=== PATIENT | female | born 1945 | race Caucasian/White ===

== ENCOUNTER 2018-01-31 20:11 | Inpatient (IN) ==
[2018-01-31] MEDS ORDERED: ASPIRIN 325 MG TABLET PO STA (21:28)
[2018-01-31 21:56] LABS: Basophils # 0.1 10*3/uL (0.0-0.2); Eosinophils # 0.1 10*3/uL (0.0-0.87); Eosinophils % 1.3 % (0.00-10.9); Hematocrit 45.2 VOL% (35.7-47.0); Hemoglobin 15.4 GM/DL (12.0-16.0); Immature Granulocytes % 0.4 %; Immature Granulocytes Absolute 0.03 #; Lymphocytes # 1.4 10*3/uL (1.4-4.0); Lymphocytes % 20.1 % (21.3-54.2); Mean Corpuscular HGB Conc 34.1 GM/DL (32-36); Mean Corpuscular Hemoglobin 32 PG (27-34); Mean Platelet Volume 10.2 FL (9.6-12.0); Monocytes # 0.7 10*3/uL (0.11-0.8); Monocytes % 9.4 % (1.7-12.7); Neutrophils # 4.9 10*3/uL (1.4-7.4); Neutrophils % 67.8 % (38.7-73.9); Platelet Count 161 T/CUMM (130-400); Red Blood Count 4.76 MC/CUMM (3.8-5.5); Red Cell Distribution Width 13.4 % (9.3-17.3); White Blood Count 7.2 T/CUMM (4-12)
[2018-01-31 22:09] LABS: PT Patient Result 10.3 SECS
[2018-01-31 22:17] LABS: Alanine Aminotransferase 24 U/L (13-56); Albumin 3.5 G/DL (3.4-5.0); Alkaline Phosphatase 78 U/L (45-117); Aspartate Amino Transferase 17 U/L (0-37); Bilirubin,Total < 0.39 MG/DL (0.2-1.0); Blood Urea Nitrogen 26 MG/DL (7-18); Calcium 8.9 MG/DL (8.5-10.1); Glucose 144 MG/DL (74-106); Osmolality,Calculated 290.1 MOS/KG (273-304); Potassium 3.9 MMOL/L (3.5-5.1); Sodium 142 MMOL/L (136-145); Total Protein 7.6 G/DL (6.4-8.3)
[2018-01-31] MEDS ORDERED: hydrALAZINE 20 MG/1 ML VIAL IV STA (22:40)
[2018-01-31] MEDS ORDERED: LABETALOL 20 MG/4 ML SYRINGE IV PRN (23:16)
[2018-01-31] MEDS ORDERED: ACETAMINOPHEN 325 MG TABLET PO PRN (23:27)
[2018-01-31] MEDS ORDERED: ONDANSETRON 4 MG/2 ML VIAL IV PRN (23:27)
[2018-02-01] MEDS ORDERED: ALBUTEROL/IPRATROPIUM 3 ML NEB RESP TX PRN (00:07)
[2018-02-01] MEDS ORDERED: ALPRAZolam 0.5 MG TABLET ONE (00:42)
[2018-02-01] MEDS: ALPRAZolam 0.5 MG TABLET PO SCH ×2 (01:15→18:05)
[2018-02-01 05:09] LABS: Basophils % 0.7 % (0.0-0.8); Eosinophils # 0.1 10*3/uL (0.0-0.87); Eosinophils % 1.8 % (0.00-10.9); Hematocrit 41.7 VOL% (35.7-47.0); Immature Granulocytes % 0.4 %; Immature Granulocytes Absolute 0.02 #; Lymphocytes # 1.3 10*3/uL (1.4-4.0); Lymphocytes % 24.1 % (21.3-54.2); Mean Corpuscular HGB Conc 33.6 GM/DL (32-36); Mean Corpuscular Hemoglobin 32 PG (27-34); Mean Corpuscular Volume 95.2 FL (87-102); Mean Platelet Volume 10.1 FL (9.6-12.0); Monocytes # 0.6 10*3/uL (0.11-0.8); Monocytes % 11.2 % (1.7-12.7); Neutrophils # 3.4 10*3/uL (1.4-7.4); Neutrophils % 61.8 % (38.7-73.9); Platelet Count 133 T/CUMM (130-400); Red Blood Count 4.38 MC/CUMM (3.8-5.5); Red Cell Distribution Width 13.5 % (9.3-17.3); White Blood Count 5.5 T/CUMM (4-12)
[2018-02-01 05:24] LABS: Calcium 8.3 MG/DL (8.5-10.1); Osmolality,Calculated 286.1 MOS/KG (273-304); Potassium 3.8 MMOL/L (3.5-5.1)
[2018-02-01 05:32] LABS: Risk Ratio 4.18
[2018-02-01] MEDS ORDERED: ENOXAPARIN 40 MG/0.4 ML SYRINGE SUBCUT SCH (09:00)
[2018-02-01] MEDS ORDERED: ASPIRIN EC 81 MG TABLET PO SCH (09:00)
[2018-02-01] MEDS: CAPTOPRIL 25 MG TABLET PO SCH ×3 (09:45→20:38)
[2018-02-01] MEDS: NICOTINE 21 MG/24 HR PATCH TRANSDERM SCH (09:45)
[2018-02-01] MEDS: cloNIDine 0.1 MG TABLET PO PRN (18:05)
[2018-02-01] MEDS: ROSUVASTATIN 20 MG TABLET PO SCH (20:46)
[2018-02-02] MEDS: NICOTINE 21 MG/24 HR PATCH TRANSDERM SCH (09:18)
[2018-02-02] MEDS: CAPTOPRIL 25 MG TABLET PO SCH ×3 (09:18→20:17)
[2018-02-02] MEDS: cloNIDine 0.1 MG TABLET PO PRN (09:19)
[2018-02-02] MEDS: amLODIPine 5 MG TABLET PO SCH (14:35)
[2018-02-02] MEDS: ROSUVASTATIN 20 MG TABLET PO SCH (20:17)
[2018-02-02] MEDS: ALPRAZolam 0.5 MG TABLET PO SCH (20:18)
[2018-02-03] MEDS ORDERED: DIAZEPAM 5 MG TABLET PO ONE (06:00)
[2018-02-03] MEDS ORDERED: PANTOPRAZOLE 40 MG TABLET PO ONE (06:00)
[2018-02-03 07:05] LABS: Basophils % 0.8 % (0.0-0.8); Eosinophils # 0.1 10*3/uL (0.0-0.87); Eosinophils % 1.6 % (0.00-10.9); Hematocrit 43.2 VOL% (35.7-47.0); Hemoglobin 14.9 GM/DL (12.0-16.0); Immature Granulocytes % 0.4 %; Immature Granulocytes Absolute 0.02 #; Lymphocytes # 1.4 10*3/uL (1.4-4.0); Lymphocytes % 26.7 % (21.3-54.2); Mean Corpuscular HGB Conc 34.5 GM/DL (32-36); Mean Corpuscular Hemoglobin 32 PG (27-34); Mean Corpuscular Volume 92.3 FL (87-102); Monocytes # 0.7 10*3/uL (0.11-0.8); Monocytes % 14.2 % (1.7-12.7); Neutrophils # 2.9 10*3/uL (1.4-7.4); Neutrophils % 56.3 % (38.7-73.9); Platelet Count 147 T/CUMM (130-400); Red Blood Count 4.68 MC/CUMM (3.8-5.5); Red Cell Distribution Width 13.4 % (9.3-17.3); White Blood Count 5.1 T/CUMM (4-12)
[2018-02-03 07:34] LABS: Calcium 8.8 MG/DL (8.5-10.1); Osmolality,Calculated 280.5 MOS/KG (273-304); Potassium 3.8 MMOL/L (3.5-5.1)
[2018-02-03] MEDS ORDERED: HEPARIN 5,000 UNIT/1 ML VIAL ONE (07:54)
[2018-02-03] MEDS: amLODIPine 5 MG TABLET PO SCH (08:13)
[2018-02-03] MEDS: NICOTINE 21 MG/24 HR PATCH TRANSDERM SCH (08:13)
[2018-02-03] MEDS: CAPTOPRIL 25 MG TABLET PO SCH ×3 (08:13→20:01)
[2018-02-03] MEDS ORDERED: ALBUTEROL/IPRATROPIUM 3 ML NEB RESP TX STA (08:45)
[2018-02-03] MEDS ORDERED: VANCOMYCIN INJ 1,000 MG in SODIUM CHLORIDE 0.9% 250 ML IV ONE (09:38)
[2018-02-03] MEDS ORDERED: PROMETHAZINE 25 MG/1 ML VIAL IM PRN (10:46)
[2018-02-03] MEDS ORDERED: GLUCAGON 1 MG VIAL IM PRN (10:46)
[2018-02-03] MEDS ORDERED: oxyCODONE/ACETAMINOPHEN 5-325 MG TABLET PO PRN (10:46)
[2018-02-03] MEDS ORDERED: NALOXONE 0.4 MG/ML VIAL IV PRN (10:46)
[2018-02-03] MEDS ORDERED: HYDROmorphone 2 MG/1 ML VIAL IV PRN ×2 (10:46)
[2018-02-03] MEDS ORDERED: DEXTROSE 50% 25 GM/50 ML VIAL IV PRN (10:46)
[2018-02-03] MEDS ORDERED: NITROPRUSSIDE 50 MG/2 ML VIAL ONE (10:59)
[2018-02-03] MEDS ORDERED: niCARdipine INJ 25 MG in SODIUM CHLORIDE 0.9% 240 ML IV PRN (11:07)
[2018-02-03] MEDS ORDERED: ONDANSETRON 4 MG/2 ML VIAL ONE ×2 (11:22→11:27)
[2018-02-03] MEDS ORDERED: LIDOCAINE 1% 5 ML VIAL ONE (11:26)
[2018-02-03] MEDS ORDERED: PROPOFOL 200 MG/20 ML VIAL IV ONE (11:26)
[2018-02-03] MEDS ORDERED: ETOMIDATE 40 MG/20 ML VIAL IV ONE (11:27)
[2018-02-03] MEDS ORDERED: fentaNYL 100 MCG/2 ML VIAL ONE (11:27)
[2018-02-03] MEDS ORDERED: HEPARIN 10,000 UNIT/10 ML VIAL ONE (11:27)
[2018-02-03] MEDS ORDERED: ROCURONIUM 100 MG/10 ML VIAL IV ONE (11:27)
[2018-02-03] MEDS ORDERED: METOPROLOL TARTRATE 5 MG/5 ML VIAL IV ONE (11:28)
[2018-02-03] MEDS ORDERED: DESFLURANE 1 UNIT/15 MINUTE INH ONE (11:28)
[2018-02-03] MEDS ORDERED: GLYCOPYRROLATE 0.4 MG/2 ML VIAL ONE (11:28)
[2018-02-03] MEDS ORDERED: PHENYLEPHRINE 10 MG/1 ML VIAL IV ONE (11:28)
[2018-02-03] MEDS ORDERED: NEOSTIGMINE 10 MG/10 ML VIAL ONE (11:29)
[2018-02-03] MEDS ORDERED: LACTATED RINGERS 1,000 ML IV ONE (11:29)
[2018-02-03] MEDS ORDERED: NITROGLYCERIN DRIP 50 MG/250 ML BOTTLE IV ONE (11:29)
[2018-02-03] MEDS ORDERED: SODIUM CHLORIDE 0.9% 250 ML IV ONE (11:29)
[2018-02-03] MEDS ORDERED: PROTAMINE SULFATE 50 MG/5 ML VIAL IV ONE (11:29)
[2018-02-03] MEDS: ONDANSETRON 4 MG/2 ML VIAL IV PRN ×2 (11:30→20:00)
[2018-02-03] MEDS: PHENYLEPHRINE DRIP 40 MG/250 ML PREMIX IV SCH (12:28)
[2018-02-03] MEDS: NITROPRUSSIDE 100 MG in DEXTROSE 5% 250 ML IV SCH ×2 (12:28→13:15)
[2018-02-03] MEDS: LACTATED RINGERS 1,000 ML IV SCH ×2 (12:30→22:06)
[2018-02-03] MEDS: INSULIN REGULAR 100 UNIT/ML SUBCUT SCH ×3 (12:31→23:55)
[2018-02-03] MEDS: CLOPIDOGREL 75 MG TABLET PO SCH (14:01)
[2018-02-03] MEDS: oxyCODONE/ACETAMINOPHEN 5-325 MG TABLET PO PRN (14:01)
[2018-02-03] MEDS: ASPIRIN EC 81 MG TABLET PO SCH (14:04)
[2018-02-03] MEDS: ALPRAZolam 0.5 MG TABLET PO SCH (19:51)
[2018-02-03] MEDS: ROSUVASTATIN 20 MG TABLET PO SCH (20:01)
[2018-02-04] MEDS: NITROPRUSSIDE 100 MG in DEXTROSE 5% 250 ML IV SCH ×2 (01:15→09:06)
[2018-02-04 05:14] LABS: Basophils % 0.4 % (0.0-0.8); Hematocrit 37.2 VOL% (35.7-47.0); Hemoglobin 12.8 GM/DL (12.0-16.0); Immature Granulocytes % 0.5 %; Immature Granulocytes Absolute 0.05 #; Lymphocytes # 0.8 10*3/uL (1.4-4.0); Lymphocytes % 8.2 % (21.3-54.2); Mean Corpuscular HGB Conc 34.4 GM/DL (32-36); Mean Corpuscular Hemoglobin 32 PG (27-34); Mean Corpuscular Volume 92.5 FL (87-102); Monocytes # 0.8 10*3/uL (0.11-0.8); Monocytes % 8.2 % (1.7-12.7); Neutrophils # 8.3 10*3/uL (1.4-7.4); Neutrophils % 82.7 % (38.7-73.9); Platelet Count 123 T/CUMM (130-400); Red Blood Count 4.02 MC/CUMM (3.8-5.5); Red Cell Distribution Width 13.6 % (9.3-17.3)
[2018-02-04] MEDS: cloNIDine 0.1 MG TABLET PO PRN ×2 (05:21→14:21)
[2018-02-04 05:31] LABS: Calcium 7.8 MG/DL (8.5-10.1); Potassium 4.1 MMOL/L (3.5-5.1)
[2018-02-04] MEDS: INSULIN REGULAR 100 UNIT/ML SUBCUT SCH ×4 (05:39→23:34)
[2018-02-04] MEDS: NICOTINE 21 MG/24 HR PATCH TRANSDERM SCH (08:06)
[2018-02-04] MEDS: ONDANSETRON 4 MG/2 ML VIAL IV PRN (08:06)
[2018-02-04] MEDS: amLODIPine 5 MG TABLET PO SCH ×2 (08:07→12:30)
[2018-02-04] MEDS: ASPIRIN EC 81 MG TABLET PO SCH (08:07)
[2018-02-04] MEDS: CLOPIDOGREL 75 MG TABLET PO SCH (08:07)
[2018-02-04] MEDS: CAPTOPRIL 25 MG TABLET PO SCH ×3 (08:07→20:21)
[2018-02-04] MEDS ORDERED: BUPIVACAINE MPF 0.25% /EPI 30 ML VIAL ONE (10:03)
[2018-02-04] MEDS ORDERED: LIDOCAINE 1% 20 ML VIAL ONE (10:03)
[2018-02-04] MEDS ORDERED: HEPARIN 5,000 UNIT/1 ML VIAL ONE (10:04)
[2018-02-04] MEDS: PHENYLEPHRINE DRIP 40 MG/250 ML PREMIX IV SCH (10:22)
[2018-02-04] MEDS: LACTATED RINGERS 1,000 ML IV SCH (12:35)
[2018-02-04] MEDS: ALBUTEROL/IPRATROPIUM 3 ML NEB RESP TX SCH ×2 (14:35→19:50)
[2018-02-04] MEDS: hydrALAZINE 20 MG/1 ML VIAL IV PRN (17:13)
[2018-02-04] MEDS: ALPRAZolam 0.5 MG TABLET PO SCH (18:57)
[2018-02-04] MEDS: ROSUVASTATIN 20 MG TABLET PO SCH (20:21)
[2018-02-05] MEDS: hydrALAZINE 20 MG/1 ML VIAL IV PRN (01:12)
[2018-02-05] MEDS: oxyCODONE/ACETAMINOPHEN 5-325 MG TABLET PO PRN (03:47)
[2018-02-05] MEDS: ONDANSETRON 4 MG/2 ML VIAL IV PRN (03:48)
[2018-02-05] MEDS: INSULIN REGULAR 100 UNIT/ML SUBCUT SCH ×4 (06:07→23:36)
[2018-02-05 06:11] LABS: Basophils % 0.3 % (0.0-0.8); Eosinophils % 0.2 % (0.00-10.9); Hematocrit 38.9 VOL% (35.7-47.0); Hemoglobin 13.2 GM/DL (12.0-16.0); Immature Granulocytes % 0.9 %; Immature Granulocytes Absolute 0.09 #; Lymphocytes # 0.8 10*3/uL (1.4-4.0); Lymphocytes % 7.8 % (21.3-54.2); Mean Corpuscular HGB Conc 33.9 GM/DL (32-36); Mean Corpuscular Hemoglobin 32 PG (27-34); Mean Platelet Volume 10.1 FL (9.6-12.0); Monocytes % 10.1 % (1.7-12.7); Neutrophils # 7.7 10*3/uL (1.4-7.4); Neutrophils % 80.7 % (38.7-73.9); Platelet Count 114 T/CUMM (130-400); Red Blood Count 4.14 MC/CUMM (3.8-5.5); Red Cell Distribution Width 13.7 % (9.3-17.3); White Blood Count 9.6 T/CUMM (4-12)
[2018-02-05 06:38] LABS: Calcium 8.5 MG/DL (8.5-10.1); Osmolality,Calculated 279.5 MOS/KG (273-304)
[2018-02-05] MEDS: ALBUTEROL/IPRATROPIUM 3 ML NEB RESP TX SCH ×4 (07:32→19:55)
[2018-02-05] MEDS: amLODIPine 5 MG TABLET PO SCH (08:00)
[2018-02-05] MEDS: CAPTOPRIL 25 MG TABLET PO SCH ×3 (08:00→21:00)
[2018-02-05] MEDS: NICOTINE 21 MG/24 HR PATCH TRANSDERM SCH (08:00)
[2018-02-05] MEDS: ASPIRIN EC 81 MG TABLET PO SCH (08:01)
[2018-02-05] MEDS: CLOPIDOGREL 75 MG TABLET PO SCH (08:01)
[2018-02-05] MEDS: NITROPRUSSIDE 100 MG in DEXTROSE 5% 250 ML IV SCH (13:02)
[2018-02-05] MEDS: PHENYLEPHRINE DRIP 40 MG/250 ML PREMIX IV SCH (13:02)
[2018-02-05] MEDS ORDERED: PHENOL 1.4% THROAT SPRAY 177 ML BOTTLE PO PRN (14:38)
[2018-02-05] MEDS: ALPRAZolam 0.5 MG TABLET PO SCH (18:45)
[2018-02-05] MEDS: ROSUVASTATIN 20 MG TABLET PO SCH (21:00)
[2018-02-06 03:58] LABS: Basophils % 0.4 % (0.0-0.8); Eosinophils # 0.1 10*3/uL (0.0-0.87); Eosinophils % 1.7 % (0.00-10.9); Hematocrit 36.9 VOL% (35.7-47.0); Hemoglobin 11.9 GM/DL (12.0-16.0); Immature Granulocytes % 0.7 %; Immature Granulocytes Absolute 0.05 #; Lymphocytes # 1.7 10*3/uL (1.4-4.0); Lymphocytes % 23.3 % (21.3-54.2); Mean Corpuscular HGB Conc 32.2 GM/DL (32-36); Mean Corpuscular Hemoglobin 31 PG (27-34); Mean Corpuscular Volume 96.1 FL (87-102); Mean Platelet Volume 10.1 FL (9.6-12.0); Monocytes # 0.9 10*3/uL (0.11-0.8); Monocytes % 12.3 % (1.7-12.7); Neutrophils # 4.4 10*3/uL (1.4-7.4); Neutrophils % 61.6 % (38.7-73.9); Platelet Count 119 T/CUMM (130-400); Red Blood Count 3.84 MC/CUMM (3.8-5.5); Red Cell Distribution Width 13.9 % (9.3-17.3); White Blood Count 7.2 T/CUMM (4-12)
[2018-02-06 04:21] LABS: Calcium 8.2 MG/DL (8.5-10.1); Osmolality,Calculated 283.3 MOS/KG (273-304); Potassium 3.8 MMOL/L (3.5-5.1)
[2018-02-06] MEDS: INSULIN REGULAR 100 UNIT/ML SUBCUT SCH ×3 (05:34→17:51)
[2018-02-06] MEDS: ISOSORBIDE MONONITRATE 30 MG TABLET PO SCH (05:57)
[2018-02-06] MEDS ORDERED: ASPIRIN CHEW 81 MG TABLET PO ONE ×2 (06:48→06:49)
[2018-02-06] MEDS ORDERED: NITROGLYCERIN SL 0.4 MG TABLET SL ONE (06:48)
[2018-02-06] MEDS ORDERED: MORPHINE 4 MG/1 ML VIAL IV PRN (06:49)
[2018-02-06] MEDS: NITROGLYCERIN SL 0.4 MG TABLET SL PRN (06:54)
[2018-02-06] MEDS: ALBUTEROL/IPRATROPIUM 3 ML NEB RESP TX SCH ×4 (07:59→20:25)
[2018-02-06] MEDS ORDERED: hydroCHLOROthiazide 12.5 MG CAPSULE PO SCH (09:00)
[2018-02-06 09:06] LABS: Basophils % 0.4 % (0.0-0.8); Eosinophils # 0.1 10*3/uL (0.0-0.87); Eosinophils % 0.8 % (0.00-10.9); Hematocrit 39.9 VOL% (35.7-47.0); Hemoglobin 13.6 GM/DL (12.0-16.0); Immature Granulocytes % 0.6 %; Immature Granulocytes Absolute 0.07 #; Lymphocytes # 0.7 10*3/uL (1.4-4.0); Lymphocytes % 6.7 % (21.3-54.2); Mean Corpuscular HGB Conc 34.1 GM/DL (32-36); Mean Corpuscular Hemoglobin 32 PG (27-34); Mean Corpuscular Volume 93.7 FL (87-102); Mean Platelet Volume 10.4 FL (9.6-12.0); Monocytes # 0.9 10*3/uL (0.11-0.8); Monocytes % 7.8 % (1.7-12.7); Neutrophils # 9.1 10*3/uL (1.4-7.4); Neutrophils % 83.7 % (38.7-73.9); Platelet Count 128 T/CUMM (130-400); Red Blood Count 4.26 MC/CUMM (3.8-5.5); Red Cell Distribution Width 13.8 % (9.3-17.3); White Blood Count 10.9 T/CUMM (4-12)
[2018-02-06 09:46] LABS: Albumin 3.1 G/DL (3.4-5.0); Bilirubin,Total 0.6 MG/DL (0.2-1.0); Calcium 8.5 MG/DL (8.5-10.1); Osmolality,Calculated 280.7 MOS/KG (273-304)
[2018-02-06] MEDS: ASPIRIN EC 81 MG TABLET PO SCH (09:52)
[2018-02-06] MEDS: CLOPIDOGREL 75 MG TABLET PO SCH (09:54)
[2018-02-06] MEDS: amLODIPine 5 MG TABLET PO SCH (09:54)
[2018-02-06] MEDS: CAPTOPRIL 25 MG TABLET PO SCH ×3 (09:54→20:49)
[2018-02-06] MEDS ORDERED: CARVEDILOL 6.25 MG TABLET PO SCH (11:30)
[2018-02-06] MEDS: NITROPRUSSIDE 100 MG in DEXTROSE 5% 250 ML IV SCH (11:36)
[2018-02-06] MEDS: NICOTINE 21 MG/24 HR PATCH TRANSDERM SCH (14:09)
[2018-02-06] MEDS: ROSUVASTATIN 20 MG TABLET PO SCH (20:49)
[2018-02-06] MEDS: CARVEDILOL 12.5 MG TABLET PO SCH (20:49)
[2018-02-06] MEDS ORDERED: ALPRAZolam 0.5 MG TABLET PO SCH (21:00)
[2018-02-06] MEDS ORDERED: INSULIN GLARGINE 100 UNIT/ML SUBCUT SCH (21:00)
[2018-02-07] MEDS: NITROGLYCERIN SL 0.4 MG TABLET SL PRN (00:13)
[2018-02-07 00:55] LABS: Basophils # 0.1 10*3/uL (0.0-0.2); Basophils % 0.6 % (0.0-0.8); Eosinophils # 0.2 10*3/uL (0.0-0.87); Eosinophils % 2.7 % (0.00-10.9); Hematocrit 35.9 VOL% (35.7-47.0); Hemoglobin 12.6 GM/DL (12.0-16.0); Immature Granulocytes % 0.5 %; Immature Granulocytes Absolute 0.04 #; Lymphocytes # 1.7 10*3/uL (1.4-4.0); Lymphocytes % 21.5 % (21.3-54.2); Mean Corpuscular HGB Conc 35.1 GM/DL (32-36); Mean Corpuscular Hemoglobin 32 PG (27-34); Mean Corpuscular Volume 92.3 FL (87-102); Mean Platelet Volume 10.1 FL (9.6-12.0); Monocytes % 12.4 % (1.7-12.7); Neutrophils # 4.9 10*3/uL (1.4-7.4); Neutrophils % 62.3 % (38.7-73.9); Platelet Count 142 T/CUMM (130-400); Red Blood Count 3.89 MC/CUMM (3.8-5.5); Red Cell Distribution Width 13.8 % (9.3-17.3); White Blood Count 7.8 T/CUMM (4-12)
[2018-02-07 00:58] LABS: Calcium 8.5 MG/DL (8.5-10.1); Osmolality,Calculated 275.8 MOS/KG (273-304); Potassium 3.8 MMOL/L (3.5-5.1)
[2018-02-07] MEDS: INSULIN REGULAR 100 UNIT/ML SUBCUT SCH ×3 (01:06→12:25)
[2018-02-07] MEDS: ONDANSETRON 4 MG/2 ML VIAL IV PRN (02:30)
[2018-02-07] MEDS: ALBUTEROL/IPRATROPIUM 3 ML NEB RESP TX SCH ×5 (07:15→15:33)
[2018-02-07] MEDS: ASPIRIN EC 81 MG TABLET PO SCH (10:27)
[2018-02-07] MEDS: CAPTOPRIL 25 MG TABLET PO SCH ×2 (10:27→15:10)
[2018-02-07] MEDS: ISOSORBIDE MONONITRATE 30 MG TABLET PO SCH (10:27)
[2018-02-07] MEDS: NICOTINE 21 MG/24 HR PATCH TRANSDERM SCH (10:27)
[2018-02-07] MEDS: CLOPIDOGREL 75 MG TABLET PO SCH (10:27)
[2018-02-07] MEDS: CARVEDILOL 12.5 MG TABLET PO SCH (10:27)
[2018-02-07] MEDS ORDERED: methylPREDNISolone SOD SUC 125 MG/2 ML VIAL IV ONE (11:59)
[2018-02-07] MEDS ORDERED: DORNASE ALFA 2.5 MG/2.5 ML VIAL RESP TX SCH (12:00)
[2018-02-07] MEDS ORDERED: LEVOFLOXACIN INJ 750 MG in PREMIX 1 EACH IV SCH (12:00)
[2018-02-07] MEDS ORDERED: AZTREONAM 2,000 MG in SYRINGE 1 EACH IV SCH (12:00)
[2018-02-07 16:14] VITALS: BP 156/64
[2018-02-07] MEDS ORDERED: methylPREDNISolone ACETATE 40 MG/1 ML VIAL IM ONE (17:00)
== END 2018-02-07 17:20 | disposition home health service (06) | DRG 37 ==
LOC: N.ED 20:11 → SUATTDRO 23:16 → N.EDINP 23:16 → N.2W 02-01 12:40 → N.5E 02-01 15:55 → N.ICU 02-03 11:09 → N.3E 02-05 19:52
PROVIDERS: ADMIT Internal Medicine; ATTEND Internal Medicine Infectious Disease

== ENCOUNTER 2020-01-11 19:56 | Inpatient (IN) ==
[2020-01-11] MEDS ORDERED: ONDANSETRON 4 MG/2 ML VIAL IV STA (20:17)
[2020-01-11] MEDS ORDERED: PANTOPRAZOLE 40 MG VIAL IV STA (20:17)
[2020-01-11] MEDS ORDERED: SODIUM CHLORIDE 0.9% 500 ML IV STA (20:17)
[2020-01-11 20:30] LABS: Basophils # 0.1 10*3/uL (0.0-0.2); Basophils % 0.6 % (0.0-0.8); Eosinophils # 0.2 10*3/uL (0.0-0.87); Hematocrit 41.6 VOL% (35.7-47.0); Hemoglobin 13.4 GM/DL (12.0-16.0); Immature Granulocytes % 0.4 %; Immature Granulocytes Absolute 0.03 #; Lymphocytes # 1.6 10*3/uL (1.4-4.0); Lymphocytes % 20.1 % (21.3-54.2); Mean Corpuscular HGB Conc 32.2 GM/DL (32-36); Mean Corpuscular Volume 90.6 FL (87-102); Mean Platelet Volume 9.8 FL (9.6-12.0); Monocytes % 9.7 % (1.7-12.7); Neutrophils % 67.2 % (38.7-73.9); Platelet Count 213 T/CUMM (130-400); Red Blood Count 4.59 MC/CUMM (3.8-5.5); Red Cell Distribution Width 14.6 % (9.3-17.3); White Blood Count 7.8 T/CUMM (4-12)
[2020-01-11 20:42] LABS: INR 1.1; PT Patient Result 11.4 SECS (9.8-11.9); Partial Thromboplastin Time 28.1 SECS (23.9-33.8)
[2020-01-11 20:54] LABS: Alanine Aminotransferase < 9 U/L (13-56); Albumin 3.3 G/DL (3.4-5.0); Alkaline Phosphatase 75 U/L (45-117); Aspartate Amino Transferase 25 U/L (0-37); Bilirubin,Total < 0.39 MG/DL (0.2-1.0); Blood Urea Nitrogen 24 MG/DL (7-18); Estimated Glom Filtration Rate 78 ML/MIN; Ferritin 84.4 ng/ml (8-252); Glucose 120 MG/DL (74-106); Osmolality,Calculated 274.1 MOS/KG (273-304); Total Protein 7.8 G/DL (6.4-8.3); Troponin I < 0.015 NG/ML (0.00-0.045)
[2020-01-11] MEDS ORDERED: hydrALAZINE 20 MG/1 ML VIAL IV STA (21:25)
[2020-01-11] MEDS ORDERED: metroNIDAZOLE INJ 500 MG in PREMIX 1 EACH IV STA (22:02)
[2020-01-11] MEDS ORDERED: LEVOFLOXACIN INJ 750 MG in PREMIX 1 EACH IV STA (22:02)
[2020-01-11] MEDS ORDERED: PROMETHAZINE 25 MG/1 ML VIAL IM PRN (22:11)
[2020-01-11] MEDS ORDERED: ACETAMINOPHEN 325 MG TABLET PO PRN (22:11)
[2020-01-11] MEDS ORDERED: hydrALAZINE 20 MG/1 ML VIAL IV PRN (22:11)
[2020-01-11] MEDS ORDERED: NICOTINE 21 MG/24 HR PATCH TRANSDERM PRN (22:11)
[2020-01-11] MEDS ORDERED: ONDANSETRON 4 MG/2 ML VIAL IV PRN (22:11)
[2020-01-11] MEDS ORDERED: ZALEPLON 5 MG CAPSULE PO PRN (22:11)
[2020-01-11] MEDS ORDERED: GLUCAGON 1 MG VIAL IM PRN (22:11)
[2020-01-11] MEDS ORDERED: DOCUSATE SODIUM 100 MG CAPSULE PO PRN (22:11)
[2020-01-11] MEDS ORDERED: guaiFENesin/DM ER 600-30 MG TABLET PO PRN (22:11)
[2020-01-11] MEDS ORDERED: NITROGLYCERIN 2% OINT 1 INCH/GM PACK TOP STA (22:12)
[2020-01-11] MEDS ORDERED: NITROGLYCERIN 2% OINT 1 INCH/GM PACK TOP ONE (22:13)
[2020-01-11] MEDS ORDERED: DEXTROSE 10% 250 ML BAG IV PRN (22:22)
[2020-01-11 22:23] LABS: Apearance,Urine Slightly Hazy (Clear); Bilirubin,Urine Negative (Negative); Blood, Urine Large mg/dL (Negative); Glucose,Urine (UA) Negative (Negative); Ketones,Urine Negative (Negative); Mucus,Urine Occasional /LPF (Occasional); Nitrite,Urine Negative (Negative); Protein,Urine 30 MG/DL; RBC,Urine 36 /HPF (0-4); Squamous Epithelial Cell,Urine Occasional /HPF (0-10); Urine Color Yellow (Yellow); Urine Specific Gravity 1.015 (1.001-1.035); Urine Urobilinogen < 2.0 EU/DL (0.2-1.0); WBC,Urine 403 /HPF (0-6)
[2020-01-11] MEDS ORDERED: NITROGLYCERIN SL 0.4 MG TABLET SL PRN (23:57)
[2020-01-12 02:49] LABS: Basophils % 0.4 % (0.0-0.8); Eosinophils # 0.1 10*3/uL (0.0-0.87); Eosinophils % 1.3 % (0.00-10.9); Hematocrit 39.9 VOL% (35.7-47.0); Immature Granulocytes % 0.5 %; Immature Granulocytes Absolute 0.04 #; Lymphocytes # 1.1 10*3/uL (1.4-4.0); Lymphocytes % 14.6 % (21.3-54.2); Mean Corpuscular HGB Conc 32.6 GM/DL (32-36); Mean Corpuscular Volume 90.7 FL (87-102); Mean Platelet Volume 10.1 FL (9.6-12.0); Monocytes % 7.9 % (1.7-12.7); Neutrophils % 75.3 % (38.7-73.9); Platelet Count 187 T/CUMM (130-400); Red Cell Distribution Width 14.5 % (9.3-17.3); White Blood Count 7.6 T/CUMM (4-12)
[2020-01-12 03:12] LABS: Calcium 9.3 MG/DL (8.5-10.1); Osmolality,Calculated 274.1 MOS/KG (273-304)
[2020-01-12] MEDS: metroNIDAZOLE INJ 500 MG in PREMIX 1 EACH IV SCH ×3 (05:36→21:18)
[2020-01-12] MEDS: CIPROFLOXACIN INJ 400 MG in PREMIX 1 EACH IV SCH ×2 (08:21→20:18)
[2020-01-12] MEDS: PANTOPRAZOLE 40 MG TABLET PO SCH (08:30)
[2020-01-12] MEDS ORDERED: ENOXAPARIN 40 MG/0.4 ML SYRINGE SUBCUT SCH (09:00)
[2020-01-12] MEDS ORDERED: TUBERCULIN SKIN TEST 0.1 ML SYRINGE INTRADERM ONE (13:04)
[2020-01-12] MEDS ORDERED: LORazepam 2 MG/1 ML VIAL IV ONE (13:37)
[2020-01-12] MEDS: MORPHINE 4 MG/1 ML VIAL IV PRN ×2 (15:51→20:18)
[2020-01-13] MEDS: MORPHINE 4 MG/1 ML VIAL IV PRN ×3 (00:24→15:28)
[2020-01-13] MEDS: metroNIDAZOLE INJ 500 MG in PREMIX 1 EACH IV SCH ×3 (05:32→22:43)
[2020-01-13] MEDS: PANTOPRAZOLE 40 MG TABLET PO SCH (08:51)
[2020-01-13] MEDS: CIPROFLOXACIN INJ 400 MG in PREMIX 1 EACH IV SCH ×2 (08:51→20:29)
[2020-01-13] MEDS ORDERED: ALBUTEROL/IPRATROPIUM 3 ML NEB RESP TX PRN (09:13)
[2020-01-13] MEDS: ISOSORBIDE MONONITRATE 30 MG TABLET PO SCH (09:26)
[2020-01-13] MEDS: DEXAMETHASONE 4 MG TABLET PO SCH ×2 (11:27→20:30)
[2020-01-13] MEDS: captopriL 25 MG TABLET PO SCH ×2 (15:14→20:30)
[2020-01-13] MEDS: LORazepam 0.5 MG TABLET PO SCH ×2 (15:14→20:30)
[2020-01-14] MEDS: metroNIDAZOLE INJ 500 MG in PREMIX 1 EACH IV SCH ×3 (05:28→22:22)
[2020-01-14 07:02] LABS: Calcium 9.6 MG/DL (8.5-10.1); Osmolality,Calculated 272.4 MOS/KG (273-304)
[2020-01-14] MEDS: MORPHINE 4 MG/1 ML VIAL IV PRN ×3 (08:20→22:19)
[2020-01-14] MEDS: CIPROFLOXACIN INJ 400 MG in PREMIX 1 EACH IV SCH ×2 (08:21→20:43)
[2020-01-14] MEDS: DEXAMETHASONE 4 MG TABLET PO SCH ×2 (08:22→20:45)
[2020-01-14] MEDS: LORazepam 0.5 MG TABLET PO SCH ×3 (08:22→20:43)
[2020-01-14] MEDS: ISOSORBIDE MONONITRATE 30 MG TABLET PO SCH (08:22)
[2020-01-14] MEDS: PANTOPRAZOLE 40 MG TABLET PO SCH (08:22)
[2020-01-14] MEDS: captopriL 25 MG TABLET PO SCH ×3 (08:22→20:46)
[2020-01-15] MEDS: metroNIDAZOLE INJ 500 MG in PREMIX 1 EACH IV SCH ×2 (06:04→15:19)
[2020-01-15 09:29] LABS: Basophils % 0.1 % (0.0-0.8); Hematocrit 40.6 VOL% (35.7-47.0); Hemoglobin 13.3 GM/DL (12.0-16.0); Immature Granulocytes % 0.7 %; Immature Granulocytes Absolute 0.07 #; Lymphocytes # 0.9 10*3/uL (1.4-4.0); Lymphocytes % 9.8 % (21.3-54.2); Mean Corpuscular HGB Conc 32.8 GM/DL (32-36); Mean Corpuscular Volume 88.5 FL (87-102); Mean Platelet Volume 10.3 FL (9.6-12.0); Monocytes % 6.5 % (1.7-12.7); Neutrophils % 82.9 % (38.7-73.9); Platelet Count 213 T/CUMM (130-400); Red Blood Count 4.59 MC/CUMM (3.8-5.5); Red Cell Distribution Width 14.4 % (9.3-17.3); White Blood Count 9.4 T/CUMM (4-12)
[2020-01-15] MEDS: PANTOPRAZOLE 40 MG TABLET PO SCH (09:42)
[2020-01-15] MEDS: ISOSORBIDE MONONITRATE 30 MG TABLET PO SCH (09:43)
[2020-01-15] MEDS: captopriL 25 MG TABLET PO SCH ×2 (09:43→15:20)
[2020-01-15] MEDS: DEXAMETHASONE 4 MG TABLET PO SCH (09:43)
[2020-01-15] MEDS: LORazepam 0.5 MG TABLET PO SCH ×2 (09:44→15:19)
[2020-01-15] MEDS: CIPROFLOXACIN INJ 400 MG in PREMIX 1 EACH IV SCH (09:46)
[2020-01-15 09:47] LABS: Calcium 9.4 MG/DL (8.5-10.1); Osmolality,Calculated 271.5 MOS/KG (273-304)
[2020-01-15] MEDS ORDERED: DIAZEPAM 5 MG TABLET PO ONE (11:00)
[2020-01-15 16:30] VITALS: BP 166/71
[2020-01-16 11:07] LABS: Breast Carcinoma Ag(CA 27.29) 44.2 U/mL (<=38.0)
== END 2020-01-15 20:30 | disposition hospice, home (50) | DRG 377 ==
LOC: EDUNIT# → EDBD → N.ED 19:56 → SUATTDRO 22:11 → N.EDINP 22:11 → N.TELES 01-12 01:02
PROVIDERS: ADMIT Internal Medicine; ATTEND Internal Medicine

== ENCOUNTER 2020-01-26 18:01 | Inpatient (IN) ==
[2020-01-26] MEDS ORDERED: MORPHINE 4 MG/1 ML VIAL IV STA (19:18)
[2020-01-26] MEDS ORDERED: ONDANSETRON 4 MG/2 ML VIAL IV ONE (19:18)
[2020-01-26] MEDS ORDERED: ONDANSETRON 4 MG/2 ML VIAL ONE (19:19)
[2020-01-26] MEDS ORDERED: MORPHINE 4 MG/1 ML VIAL ONE (19:20)
[2020-01-26 19:26] LABS: Basophils # 0.1 10*3/uL (0.0-0.2); Basophils % 0.6 % (0.0-0.8); Eosinophils # 0.2 10*3/uL (0.0-0.87); Eosinophils % 1.4 % (0.00-10.9); Hematocrit 44.2 VOL% (35.7-47.0); Hemoglobin 14.1 GM/DL (12.0-16.0); Immature Granulocytes % 0.3 %; Immature Granulocytes Absolute 0.04 #; Lymphocytes # 1.5 10*3/uL (1.4-4.0); Lymphocytes % 11.9 % (21.3-54.2); Mean Corpuscular HGB Conc 31.9 GM/DL (32-36); Mean Corpuscular Volume 90.8 FL (87-102); Mean Platelet Volume 10.4 FL (9.6-12.0); Monocytes % 7.5 % (1.7-12.7); Neutrophils % 78.3 % (38.7-73.9); Platelet Count 173 T/CUMM (130-400); Red Blood Count 4.87 MC/CUMM (3.8-5.5); Red Cell Distribution Width 14.9 % (9.3-17.3); White Blood Count 12.5 T/CUMM (4-12)
[2020-01-26 19:39] LABS: PT Patient Result 10.8 SECS (9.8-11.9); Partial Thromboplastin Time 25.2 SECS (23.9-33.8)
[2020-01-26] MEDS ORDERED: hydrALAZINE 20 MG/1 ML VIAL ONE (19:40)
[2020-01-26] MEDS ORDERED: hydrALAZINE 20 MG/1 ML VIAL IV ONE (19:41)
[2020-01-26 19:48] LABS: Alanine Aminotransferase 14 U/L (13-56); Albumin 3.1 G/DL (3.4-5.0); Alkaline Phosphatase 69 U/L (45-117); Aspartate Amino Transferase 31 U/L (0-37); Bilirubin,Total < 0.39 MG/DL (0.2-1.0); Blood Urea Nitrogen 19 MG/DL (7-18); Calcium 9.1 MG/DL (8.5-10.1); Estimated Glom Filtration Rate 81 ML/MIN; Glucose 170 MG/DL (74-106); Osmolality,Calculated 273.2 MOS/KG (273-304); Total Protein 7.3 G/DL (6.4-8.3)
[2020-01-26] MEDS ORDERED: NICOTINE 21 MG/24 HR PATCH TRANSDERM PRN (19:57)
[2020-01-26] MEDS ORDERED: ACETAMINOPHEN 325 MG TABLET PO PRN (19:57)
[2020-01-26] MEDS ORDERED: MORPHINE 4 MG/1 ML VIAL IV PRN (19:57)
[2020-01-26] MEDS ORDERED: DEXTROSE 50% 25 GM/50 ML VIAL IV PRN (19:57)
[2020-01-26] MEDS ORDERED: GLUCAGON 1 MG VIAL IM PRN (19:57)
[2020-01-26] MEDS ORDERED: ONDANSETRON 4 MG/2 ML VIAL IV PRN (19:57)
[2020-01-26] MEDS ORDERED: hydrALAZINE 20 MG/1 ML VIAL IV PRN (19:57)
[2020-01-26] MEDS ORDERED: ALBUTEROL/IPRATROPIUM 3 ML NEB RESP TX PRN (20:33)
[2020-01-26] MEDS: DEXAMETHASONE 4 MG TABLET PO SCH (21:37)
[2020-01-26] MEDS: LACTATED RINGERS 1,000 ML IV SCH (22:04)
[2020-01-26] MEDS: MORPHINE 4 MG/1 ML VIAL IV PRN (22:06)
[2020-01-26] MEDS: LORazepam 1 MG TABLET PO SCH (22:07)
[2020-01-26] MEDS: LEVOFLOXACIN INJ 500 MG in PREMIX 1 EACH IV SCH (22:07)
[2020-01-26] MEDS: carvediloL 12.5 MG TABLET PO SCH (22:07)
[2020-01-26] MEDS: ROSUVASTATIN 20 MG TABLET PO SCH (22:07)
[2020-01-27 02:41] LABS: Apearance,Urine CLOUDY (Clear); Bilirubin,Urine Negative (Negative); Blood, Urine Small mg/dL (Negative); Glucose,Urine (UA) Negative (Negative); Ketones,Urine 5 mg/dL (Negative); Mucus,Urine Many /LPF (Occasional); Nitrite,Urine Negative (Negative); Protein,Urine 100 MG/DL; Urine Color Yellow (Yellow); Urine Specific Gravity 1.016 (1.001-1.035); Urine Urobilinogen < 2.0 EU/DL (0.2-1.0); WBC,Urine 35342 /HPF (0-6)
[2020-01-27] MEDS: MORPHINE 4 MG/1 ML VIAL IV PRN ×2 (05:15→09:53)
[2020-01-27 06:07] LABS: Basophils % 0.3 % (0.0-0.8); Eosinophils # 0.1 10*3/uL (0.0-0.87); Eosinophils % 0.5 % (0.00-10.9); Hematocrit 39.9 VOL% (35.7-47.0); Hemoglobin 12.9 GM/DL (12.0-16.0); Immature Granulocytes % 0.6 %; Immature Granulocytes Absolute 0.07 #; Lymphocytes # 1.1 10*3/uL (1.4-4.0); Lymphocytes % 8.4 % (21.3-54.2); Mean Corpuscular HGB Conc 32.3 GM/DL (32-36); Mean Corpuscular Volume 89.9 FL (87-102); Mean Platelet Volume 10.6 FL (9.6-12.0); Monocytes % 7.2 % (1.7-12.7); Platelet Count 172 T/CUMM (130-400); Red Blood Count 4.44 MC/CUMM (3.8-5.5); Red Cell Distribution Width 15.1 % (9.3-17.3); White Blood Count 12.6 T/CUMM (4-12)
[2020-01-27 06:31] LABS: Calcium 9.3 MG/DL (8.5-10.1); Osmolality,Calculated 272.4 MOS/KG (273-304)
[2020-01-27] MEDS ORDERED: FAMOTIDINE 20 MG TABLET PO ONE (08:58)
[2020-01-27] MEDS: LACTATED RINGERS 1,000 ML IV SCH ×2 (09:54→19:07)
[2020-01-27] MEDS ORDERED: ceFAZolin 1,000 MG VIAL ONE (11:30)
[2020-01-27] MEDS ORDERED: ceFAZolin 2,000 MG in PREMIX 1 EACH IV ONE (11:33)
[2020-01-27] MEDS ORDERED: KETAMINE 500 MG/10 ML VIAL ONE (13:12)
[2020-01-27] MEDS ORDERED: SEVOFLURANE 1 UNIT/15 MINUTE INH ONE (13:12)
[2020-01-27] MEDS ORDERED: LIDOCAINE 2% 5 ML VIAL ONE (13:12)
[2020-01-27] MEDS ORDERED: ETOMIDATE 40 MG/20 ML VIAL IV ONE (13:13)
[2020-01-27] MEDS ORDERED: NEOSTIGMINE 10 MG/10 ML VIAL ONE (13:13)
[2020-01-27] MEDS ORDERED: GLYCOPYRROLATE 0.4 MG/2 ML VIAL ONE (13:13)
[2020-01-27] MEDS ORDERED: ROCURONIUM 100 MG/10 ML VIAL IV ONE (13:13)
[2020-01-27] MEDS ORDERED: DEXAMETHASONE 4 MG/1 ML VIAL ONE (13:13)
[2020-01-27] MEDS ORDERED: LACTATED RINGERS 1,000 ML IV ONE (13:13)
[2020-01-27] MEDS ORDERED: MIDAZOLAM 2 MG/2 ML VIAL ONE (13:13)
[2020-01-27] MEDS ORDERED: EPINEPHrine 1 MG/ML VIAL ONE (13:13)
[2020-01-27] MEDS ORDERED: ONDANSETRON 4 MG/2 ML VIAL ONE (13:13)
[2020-01-27] MEDS ORDERED: SUCCINYLCHOLINE 200 MG/10 ML VIAL ONE (13:13)
[2020-01-27] MEDS ORDERED: MAGNESIUM HYDROXIDE SUSP 30 ML UDCUP PO PRN (13:36)
[2020-01-27] MEDS ORDERED: ALBUTEROL/IPRATROPIUM 3 ML NEB RESP TX ONE (13:37)
[2020-01-27] MEDS: carvediloL 12.5 MG TABLET PO SCH (18:56)
[2020-01-27] MEDS: LORazepam 1 MG TABLET PO SCH ×2 (18:57→23:30)
[2020-01-27] MEDS: ISOSORBIDE MONONITRATE 30 MG TABLET PO SCH (18:57)
[2020-01-27] MEDS: NICOTINE 21 MG/24 HR PATCH TRANSDERM SCH (18:57)
[2020-01-27] MEDS: DEXAMETHASONE 4 MG TABLET PO SCH ×2 (18:57→23:30)
[2020-01-27] MEDS: ROSUVASTATIN 20 MG TABLET PO SCH (23:30)
[2020-01-27] MEDS: LEVOFLOXACIN INJ 500 MG in PREMIX 1 EACH IV SCH (23:30)
[2020-01-27] MEDS: ASPIRIN EC 81 MG TABLET PO SCH (23:30)
[2020-01-27] MEDS: ALPRAZolam 0.5 MG TABLET PO PRN (23:42)
[2020-01-28] MEDS: MORPHINE 4 MG/1 ML VIAL IV PRN ×4 (02:52→21:26)
[2020-01-28 04:56] LABS: Basophils % 0.1 % (0.0-0.8); Hematocrit 32.8 VOL% (35.7-47.0); Hemoglobin 10.6 GM/DL (12.0-16.0); Immature Granulocytes % 0.5 %; Immature Granulocytes Absolute 0.05 #; Lymphocytes # 0.9 10*3/uL (1.4-4.0); Lymphocytes % 8.9 % (21.3-54.2); Mean Corpuscular HGB Conc 32.3 GM/DL (32-36); Mean Corpuscular Volume 90.9 FL (87-102); Mean Platelet Volume 10.5 FL (9.6-12.0); Monocytes % 9.4 % (1.7-12.7); Neutrophils % 81.1 % (38.7-73.9); Platelet Count 154 T/CUMM (130-400); Red Blood Count 3.61 MC/CUMM (3.8-5.5); White Blood Count 10.3 T/CUMM (4-12)
[2020-01-28 05:43] LABS: Calcium 8.5 MG/DL (8.5-10.1); Osmolality,Calculated 274.2 MOS/KG (273-304)
[2020-01-28] MEDS: ENOXAPARIN 40 MG/0.4 ML SYRINGE SUBCUT SCH (06:05)
[2020-01-28] MEDS: LACTATED RINGERS 1,000 ML IV SCH ×2 (06:05→16:36)
[2020-01-28] MEDS: LORazepam 1 MG TABLET PO SCH ×3 (09:30→21:19)
[2020-01-28] MEDS: carvediloL 12.5 MG TABLET PO SCH ×2 (09:31→16:36)
[2020-01-28] MEDS: ISOSORBIDE MONONITRATE 30 MG TABLET PO SCH (09:31)
[2020-01-28] MEDS: DEXAMETHASONE 4 MG TABLET PO SCH ×2 (09:31→20:49)
[2020-01-28] MEDS: NICOTINE 21 MG/24 HR PATCH TRANSDERM SCH (09:32)
[2020-01-28] MEDS: ROSUVASTATIN 20 MG TABLET PO SCH (21:25)
[2020-01-28] MEDS: ASPIRIN EC 81 MG TABLET PO SCH (21:26)
[2020-01-28] MEDS: LEVOFLOXACIN INJ 500 MG in PREMIX 1 EACH IV SCH (21:27)
[2020-01-28] MEDS: ALPRAZolam 0.5 MG TABLET PO PRN (23:19)
[2020-01-29] MEDS: LACTATED RINGERS 1,000 ML IV SCH ×2 (03:17→14:03)
[2020-01-29 05:50] LABS: Basophils % 0.1 % (0.0-0.8); Hematocrit 27.9 VOL% (35.7-47.0); Hemoglobin 9.1 GM/DL (12.0-16.0); Immature Granulocytes % 0.7 %; Immature Granulocytes Absolute 0.05 #; Lymphocytes # 0.9 10*3/uL (1.4-4.0); Lymphocytes % 12.1 % (21.3-54.2); Mean Corpuscular HGB Conc 32.6 GM/DL (32-36); Mean Corpuscular Volume 89.4 FL (87-102); Mean Platelet Volume 10.6 FL (9.6-12.0); Monocytes % 8.8 % (1.7-12.7); Neutrophils % 78.3 % (38.7-73.9); Platelet Count 127 T/CUMM (130-400); Red Blood Count 3.12 MC/CUMM (3.8-5.5); Red Cell Distribution Width 14.9 % (9.3-17.3); White Blood Count 7.4 T/CUMM (4-12)
[2020-01-29] MEDS: MORPHINE 4 MG/1 ML VIAL IV PRN ×4 (05:52→22:37)
[2020-01-29] MEDS: ENOXAPARIN 40 MG/0.4 ML SYRINGE SUBCUT SCH (05:52)
[2020-01-29] MEDS: NICOTINE 21 MG/24 HR PATCH TRANSDERM SCH (09:05)
[2020-01-29] MEDS: DEXAMETHASONE 4 MG TABLET PO SCH ×2 (09:06→22:36)
[2020-01-29] MEDS: ISOSORBIDE MONONITRATE 30 MG TABLET PO SCH (09:06)
[2020-01-29] MEDS: carvediloL 12.5 MG TABLET PO SCH ×2 (09:06→18:06)
[2020-01-29] MEDS: LORazepam 1 MG TABLET PO SCH ×3 (09:06→22:37)
[2020-01-29] MEDS ORDERED: FLUCONAZOLE 100 MG TABLET PO SCH (12:00)
[2020-01-29] MEDS: ROSUVASTATIN 20 MG TABLET PO SCH (22:37)
[2020-01-29] MEDS: ASPIRIN EC 81 MG TABLET PO SCH (22:37)
[2020-01-30] MEDS: LACTATED RINGERS 1,000 ML IV SCH ×2 (01:53→08:33)
[2020-01-30] MEDS: MORPHINE 4 MG/1 ML VIAL IV PRN ×2 (03:38→11:45)
[2020-01-30 05:20] LABS: Basophils % 0.1 % (0.0-0.8); Eosinophils % 0.1 % (0.00-10.9); Hematocrit 29.7 VOL% (35.7-47.0); Hemoglobin 9.8 GM/DL (12.0-16.0); Immature Granulocytes % 1.3 %; Immature Granulocytes Absolute 0.11 #; Lymphocytes # 0.6 10*3/uL (1.4-4.0); Lymphocytes % 7.2 % (21.3-54.2); Mean Platelet Volume 10.6 FL (9.6-12.0); Monocytes % 4.7 % (1.7-12.7); Neutrophils % 86.6 % (38.7-73.9); Platelet Count 145 T/CUMM (130-400); Red Cell Distribution Width 14.8 % (9.3-17.3); White Blood Count 8.6 T/CUMM (4-12)
[2020-01-30 05:58] LABS: Calcium 8.6 MG/DL (8.5-10.1); Osmolality,Calculated 274.2 MOS/KG (273-304)
[2020-01-30] MEDS: ENOXAPARIN 40 MG/0.4 ML SYRINGE SUBCUT SCH (06:35)
[2020-01-30] MEDS: NICOTINE 21 MG/24 HR PATCH TRANSDERM SCH (08:35)
[2020-01-30] MEDS: carvediloL 12.5 MG TABLET PO SCH (08:35)
[2020-01-30] MEDS: ISOSORBIDE MONONITRATE 30 MG TABLET PO SCH (08:35)
[2020-01-30] MEDS: DEXAMETHASONE 4 MG TABLET PO SCH (08:35)
[2020-01-30] MEDS: LORazepam 1 MG TABLET PO SCH (08:35)
[2020-01-30] MEDS ORDERED: FLUCONAZOLE 200 MG TABLET PO SCH (09:00)
[2020-01-30 11:23] VITALS: BP 127/64
== END 2020-01-30 16:33 | disposition hospice, home (50) | DRG 481 ==
LOC: EDBD → EDUNIT# → N.ED 18:01 → N.EDINP 19:57 → SUATTDRO 19:57 → N.3E 20:34
PROVIDERS: ADMIT Family Medicine; ATTEND Emergency Medicine

== ENCOUNTER 2020-02-05 20:17 | Inpatient (IN) ==
[2020-02-05] MEDS ORDERED: MORPHINE 4 MG/1 ML VIAL IV STA (20:50)
[2020-02-05] MEDS ORDERED: ONDANSETRON 4 MG/2 ML VIAL IV ONE (20:50)
[2020-02-05 21:11] LABS: Basophils % 0.2 % (0.0-0.8); Eosinophils % 0.1 % (0.00-10.9); Hematocrit 33.9 VOL% (35.7-47.0); Hemoglobin 10.9 GM/DL (12.0-16.0); Immature Granulocytes Absolute 0.12 #; Lymphocytes # 0.8 10*3/uL (1.4-4.0); Lymphocytes % 7.1 % (21.3-54.2); Mean Corpuscular HGB Conc 32.2 GM/DL (32-36); Mean Corpuscular Volume 92.1 FL (87-102); Monocytes % 4.3 % (1.7-12.7); Neutrophils % 87.3 % (38.7-73.9); Platelet Count 236 T/CUMM (130-400); Red Blood Count 3.68 MC/CUMM (3.8-5.5); Red Cell Distribution Width 16.3 % (9.3-17.3); White Blood Count 11.7 T/CUMM (4-12)
[2020-02-05] MEDS ORDERED: GLUCAGON 1 MG VIAL IM PRN (21:20)
[2020-02-05] MEDS ORDERED: ONDANSETRON 4 MG/2 ML VIAL IV PRN (21:20)
[2020-02-05] MEDS ORDERED: ACETAMINOPHEN 325 MG TABLET PO PRN (21:20)
[2020-02-05] MEDS ORDERED: hydrALAZINE 20 MG/1 ML VIAL IV PRN (21:20)
[2020-02-05] MEDS ORDERED: DEXTROSE 50% 25 GM/50 ML VIAL IV PRN (21:20)
[2020-02-05] MEDS ORDERED: guaiFENesin/DM ER 600-30 MG TABLET PO PRN (21:20)
[2020-02-05] MEDS ORDERED: NICOTINE 21 MG/24 HR PATCH TRANSDERM PRN (21:20)
[2020-02-05 21:24] LABS: PT Patient Result 10.7 SECS (9.8-11.9); Partial Thromboplastin Time 22.2 SECS (23.9-33.8)
[2020-02-05 21:26] LABS: Apearance,Urine CLEAR (Clear); Bilirubin,Urine Negative (Negative); Blood, Urine Negative (Negative); Glucose,Urine (UA) >=500 mg/dL (Negative); Ketones,Urine Negative (Negative); Mucus,Urine Occasional /LPF (Occasional); Nitrite,Urine Negative (Negative); Protein,Urine Negative; RBC,Urine 1 /HPF (0-4); Urine Color Yellow (Yellow); Urine Specific Gravity 1.025 (1.001-1.035); Urine Urobilinogen < 2.0 EU/DL (0.2-1.0); WBC,Urine 2 /HPF (0-6)
[2020-02-05 21:35] LABS: Albumin 3.2 G/DL (3.4-5.0); Bilirubin,Total 0.7 MG/DL (0.2-1.0); Calcium 8.7 MG/DL (8.5-10.1); Osmolality,Calculated 282.7 MOS/KG (273-304); Total Protein 6.9 G/DL (6.4-8.3)
[2020-02-06] MEDS: MORPHINE 4 MG/1 ML VIAL IV PRN ×2 (01:19→08:17)
[2020-02-06] MEDS ORDERED: ceFAZolin 2,000 MG in PREMIX 1 EACH IV ONE (06:31)
[2020-02-06 07:26] LABS: Basophils % 0.1 % (0.0-0.8); Eosinophils # 0.1 10*3/uL (0.0-0.87); Hemoglobin 10.7 GM/DL (12.0-16.0); Immature Granulocytes % 0.7 %; Immature Granulocytes Absolute 0.08 #; Lymphocytes # 1.7 10*3/uL (1.4-4.0); Lymphocytes % 13.8 % (21.3-54.2); Mean Corpuscular HGB Conc 32.4 GM/DL (32-36); Mean Corpuscular Volume 92.7 FL (87-102); Monocytes % 9.1 % (1.7-12.7); Neutrophils % 75.3 % (38.7-73.9); Platelet Count 219 T/CUMM (130-400); Red Blood Count 3.56 MC/CUMM (3.8-5.5); Red Cell Distribution Width 16.5 % (9.3-17.3); White Blood Count 12.3 T/CUMM (4-12)
[2020-02-06 07:56] LABS: Bilirubin,Total 0.6 MG/DL (0.2-1.0); Osmolality,Calculated 268.8 MOS/KG (273-304); Total Protein 6.7 G/DL (6.4-8.3)
[2020-02-06] MEDS: LACTATED RINGERS 1,000 ML IV SCH ×3 (11:57→16:14)
[2020-02-06] MEDS ORDERED: BACITRACIN OINT 0.9 GM PACK TOP ONE (14:20)
[2020-02-06] MEDS ORDERED: ALBUTEROL/IPRATROPIUM 3 ML NEB RESP TX PRN (14:33)
[2020-02-06] MEDS ORDERED: NITROGLYCERIN SL 0.4 MG TABLET SL PRN (14:33)
[2020-02-06] MEDS ORDERED: ALPRAZolam 0.5 MG TABLET PO PRN (14:33)
[2020-02-06] MEDS ORDERED: FUROSEMIDE 40 MG TABLET PO PRN (14:33)
[2020-02-06] MEDS ORDERED: diphenhydrAMINE CAP 25 MG CAPSULE PO PRN (14:36)
[2020-02-06] MEDS ORDERED: MAGNESIUM HYDROXIDE SUSP 30 ML UDCUP PO PRN (14:36)
[2020-02-06] MEDS ORDERED: MORPHINE 4 MG/1 ML VIAL IV PRN (14:36)
[2020-02-06] MEDS ORDERED: DEXTROSE 50% 25 GM/50 ML VIAL IV PRN (14:39)
[2020-02-06] MEDS ORDERED: LIDOCAINE 2% 5 ML VIAL ONE (14:53)
[2020-02-06] MEDS ORDERED: propofoL 200 MG/20 ML VIAL IV ONE (14:53)
[2020-02-06] MEDS ORDERED: SEVOFLURANE 1 UNIT/15 MINUTE INH ONE (14:53)
[2020-02-06] MEDS ORDERED: ePHEDrine 50 MG/ML VIAL ONE (14:54)
[2020-02-06] MEDS ORDERED: ETOMIDATE 40 MG/20 ML VIAL IV ONE (14:54)
[2020-02-06] MEDS ORDERED: DEXAMETHASONE 4 MG/1 ML VIAL ONE (14:54)
[2020-02-06] MEDS ORDERED: ONDANSETRON 4 MG/2 ML VIAL ONE (14:54)
[2020-02-06] MEDS ORDERED: fentaNYL 100 MCG/2 ML VIAL ONE (14:54)
[2020-02-06] MEDS ORDERED: GLYCOPYRROLATE 0.4 MG/2 ML VIAL ONE ×2 (14:54→14:56)
[2020-02-06] MEDS ORDERED: ROCURONIUM 100 MG/10 ML VIAL IV ONE (14:55)
[2020-02-06] MEDS ORDERED: PHENYLEPHRINE 1 MG/10 ML SYRINGE IV ONE (14:55)
[2020-02-06] MEDS ORDERED: SUCCINYLCHOLINE 200 MG/10 ML VIAL ONE (14:55)
[2020-02-06] MEDS ORDERED: NEOSTIGMINE 10 MG/10 ML VIAL ONE (14:55)
[2020-02-06] MEDS ORDERED: LACTATED RINGERS 1,000 ML IV ONE (14:56)
[2020-02-06] MEDS: captopriL 25 MG TABLET PO SCH ×2 (16:12→22:23)
[2020-02-06] MEDS: KETOROLAC 15 MG/1 ML VIAL IV SCH ×2 (16:13→22:25)
[2020-02-06] MEDS: INSULIN LISPRO 100 UNIT/ML SUBCUT SCH ×2 (16:40→22:23)
[2020-02-06] MEDS: ceFAZolin 2,000 MG in PREMIX 1 EACH IV SCH (17:54)
[2020-02-06] MEDS ORDERED: ROSUVASTATIN 20 MG TABLET PO SCH (21:00)
[2020-02-06] MEDS ORDERED: traZODone 50 MG TABLET PO SCH (21:00)
[2020-02-06] MEDS ORDERED: DOCUSATE SODIUM 100 MG CAPSULE PO SCH (21:00)
[2020-02-06] MEDS: carvediloL 12.5 MG TABLET PO SCH (22:24)
[2020-02-07] MEDS: LACTATED RINGERS 1,000 ML IV SCH (01:05)
[2020-02-07] MEDS: ceFAZolin 2,000 MG in PREMIX 1 EACH IV SCH (01:38)
[2020-02-07] MEDS: MORPHINE 4 MG/1 ML VIAL IV PRN ×2 (02:45→10:22)
[2020-02-07] MEDS: KETOROLAC 15 MG/1 ML VIAL IV SCH ×2 (05:08→09:42)
[2020-02-07 05:48] LABS: Basophils % 0.1 % (0.0-0.8); Eosinophils % 0.2 % (0.00-10.9); Hematocrit 26.5 VOL% (35.7-47.0); Hemoglobin 8.4 GM/DL (12.0-16.0); Immature Granulocytes % 0.6 %; Immature Granulocytes Absolute 0.06 #; Lymphocytes # 1.4 10*3/uL (1.4-4.0); Lymphocytes % 14.3 % (21.3-54.2); Mean Corpuscular HGB Conc 31.7 GM/DL (32-36); Mean Platelet Volume 10.1 FL (9.6-12.0); Monocytes % 8.6 % (1.7-12.7); Neutrophils % 76.2 % (38.7-73.9); Platelet Count 162 T/CUMM (130-400); Red Blood Count 2.82 MC/CUMM (3.8-5.5); Red Cell Distribution Width 16.8 % (9.3-17.3); White Blood Count 9.5 T/CUMM (4-12)
[2020-02-07 05:56] LABS: Albumin 2.3 G/DL (3.4-5.0); Bilirubin,Total 0.5 MG/DL (0.2-1.0); Calcium 8.3 MG/DL (8.5-10.1); Osmolality,Calculated 272.4 MOS/KG (273-304); Total Protein 5.5 G/DL (6.4-8.3)
[2020-02-07 07:59] VITALS: BP 140/73
[2020-02-07] MEDS ORDERED: MAGNESIUM HYDROXIDE SUSP 30 ML UDCUP PO ONE (08:00)
[2020-02-07] MEDS ORDERED: BISACODYL 10 MG SUPP RECTAL ONE (08:00)
[2020-02-07] MEDS ORDERED: LINACLOTIDE 145 MCG CAPSULE PO ONE (08:00)
[2020-02-07] MEDS ORDERED: SODIUM CHLORIDE 0.9% 500 ML IV ONE (08:35)
[2020-02-07] MEDS ORDERED: ALPRAZolam 0.5 MG TABLET PO ONE (08:40)
[2020-02-07] MEDS: captopriL 25 MG TABLET PO SCH (08:54)
[2020-02-07] MEDS: carvediloL 12.5 MG TABLET PO SCH (08:54)
[2020-02-07] MEDS ORDERED: DEXAMETHASONE 4 MG TABLET PO SCH (09:00)
[2020-02-07] MEDS ORDERED: APIXABAN 2.5 MG TABLET PO SCH (09:00)
[2020-02-07] MEDS ORDERED: IRON SUCROSE 300 MG in SODIUM CHLORIDE 0.9% 100 ML IV ONE (09:00)
[2020-02-07] MEDS ORDERED: ISOSORBIDE MONONITRATE 30 MG TABLET PO SCH (09:00)
[2020-02-07] MEDS: INSULIN LISPRO 100 UNIT/ML SUBCUT SCH ×2 (09:09→12:04)
[2020-02-08] MEDS ORDERED: DOCUSATE SODIUM 100 MG/10 ML UDCUP PO SCH (09:00)
[2020-02-08] MEDS ORDERED: ASPIRIN EC 81 MG TABLET PO SCH (21:00)
== END 2020-02-07 12:19 | disposition hospice, home (50) | DRG 481 ==
LOC: EDBD → EDUNIT# → N.ED 20:17 → N.EDINP 21:20 → N.3E 22:53
PROVIDERS: ADMIT Internal Medicine; ATTEND Internal Medicine